=== PATIENT | female | born 1990 | race Hispanic/Latino ===

== ENCOUNTER 2017-06-09 10:31 | Emergency (ER) | payer OTHER ==
[2017-06-09 10:55] LABS: APPEARANCE,URINE Clear (CLEAR); BILIRUBIN,URINE Negative (NEGATIVE); COLOR,URINE Yellow (YELLOW); GLUCOSE, URINE (UA) Negative (NEGATIVE); KETONES,URINE Negative (NEGATIVE); LEUKOCYTE ESTERASE ,URINE Large (NEGATIVE); NITRATE,URINE Negative (NEGATIVE); OCCULT BLOOD,URINE Moderate (NEGATIVE); PROTEIN,URINE Negative (NEGATIVE); UROBILINOGEN,URINE 0.2 mg/dL (0.2-1.0)
[2017-06-09 10:57] LABS: HCG,QUAL RESULT NEGATIVE (NEGATIVE)
[2017-06-09 11:08] LABS: BACTERIA,URINE Rare /HPF (None Seen); RBC,URINE None Seen /HPF (0-1); SQUAMOUS EPITHELIAL CELL,UR Few /LPF (0-2)
== END 2017-06-09 11:13 | disposition home or self-care (01) ==
LOC: EDH 10:31
DX: N30.00 Acute cystitis without hematuria (principal)
CPT/HCPCS: 81001; 81025

== ENCOUNTER 2024-06-27 03:06 | Emergency (ER) | payer SELFPAY ==
[~2024-06-27] VITALS: Ht 160 cm; Wt 56.7 kg
--- NOTE | 2024-06-27 03:29 | NUR ---
REFUSAL OF C COLLAR SIGNED BY MYSELF AND DPS OFFICER BEAULIEU. PLACED IN CHART
--- NOTE | 2024-06-27 03:54 | NUR ---
AT THIS TIME PATIENT IS REFUSING BLOOD WORK AND A URINE
--- NOTE | 2024-06-27 04:09 | NUR ---
PT REFUSED BLOODWORK AND IV CATHETER INSERTION. PT NOTED TO AHVE NAUSEA AND VOMTITING AT THIS TIME.
--- NOTE | 2024-06-27 04:17 | NUR ---
TRAUMA LVL 2 ACTIVATED AT THIS TIME.
[2024-06-27 04:20] VITALS: BP 119/85; PULSE 121; RESP 30; TEMP 98.9; O2SAT 98
--- NOTE | 2024-06-27 04:22 | NUR ---
PT TAKEN TO CT AT THIS TIME.
--- NOTE | 2024-06-27 04:35 | NUR ---
PT BACK FROM CT AT THIS TIME. PT REFUSED CT SCAN ONCE SHE LAID DOWN ON THE CT. PT STATES "I DONT WANT TO DO THIS ANYMORE". WHEN RN AND HOME SALES CONSULTANT ASKED IF SHES REFUSING THE CT SCAN, SHE NODDED AND SAID "I DONT WANT TO DO IT." WHEN RN ASKED ABOUT THE CXR, PT REFUSED WELL. REFUSAL PAPERWORK SIGNED BY PATIENT AND WITNESSED BY PRIMARY RN.
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
== END 2024-06-27 05:52 ==
LOC: EEVIPCON 03:06 → EDH 03:06
DX: S00.81XA Abrasion of other part of head, initial encounter (principal); S10.91XA Abrasion of unspecified part of neck, initial encounter; V89.2XXA Person injured in unspecified motor-vehicle accident, traffic, initial encounter; Y93.89 Activity, other specified; Y92.488 Other paved roadways as the place of occurrence of the external cause; Y99.8 Other external cause status
CPT/HCPCS: 99283